=== PATIENT | male | born 1950 | race Caucasian/White ===

== ENCOUNTER 2016-11-07 08:20 | Day surgery (SDC) | payer OTHER ==
[~2016-11-07] VITALS: Ht 170.2 cm; Wt 91.5 kg
[2016-11-07] MEDS ORDERED: naproxen (09:34)
[2016-11-07] MEDS ORDERED: gabapentin (09:34)
[2016-11-07 09:38] VITALS: Ht 170.2 cm; Wt 91.5 kg
[2016-11-07 09:53] VITALS: BP 109/67; PULSE 53; RESP 20
[2016-11-07] MEDS ORDERED: FENTAnyl 50 MCG/ML VIAL ONE (10:17)
[2016-11-07] MEDS ORDERED: MIDAZOLAM 1 MG/ML 2 ML INJ ONE ×2 (10:17)
[2016-11-07 10:43] VITALS: BP 133/82; PULSE 60; RESP 21
--- NOTE | 2016-11-07 11:00 | GILP ---
DATE OF PROCEDURE: NAME OF PROCEDURES: Colonoscopy. SURGEON: Paul Bryan MD PREOPERATIVE DIAGNOSIS: Screening colonoscopy. POSTOPERATIVE DIAGNOSES 1. Colonoscopy all the way to the cecum. 2. Poor prep making the exam very suboptimal. 3. Diverticulosis of the colon. 4. Internal hemorrhoids. INDICATION FOR THE PROCEDURE: Mr. Rubio Dyer is a 66-year-old male patient who was scheduled for screening colonoscopy. The procedure and possible complications were well explained to the patient, he understood and conse nted to the procedure. DESCRIPTION OF PROCEDURE: Under the influence of fentanyl and Versed, the colonoscope was carefully introduced in the rectum and under direct vision, it was advanced all the way to the cecum. FINDINGS: The patient had poor prep making the exam very suboptimal. The patient was noted to have diverticulosis of the colon and internal hemorrhoids. No gross neoplasm was identified. He tolerated the procedure very well and there was no complication from the procedure. At the end o f the procedure, he was awake with stable vital signs and he was discharged home to the care of his family. IMPRESSION: 1. Colonoscopy all the way to the cecum. 2. Poor prep making the exam very suboptimal. 3. Diverticulosis of the colon. 4. Internal hemorrhoids. 5. No gross neoplasm was identified. PLAN: Because of the poor prep and suboptimal nature of the examination, the patient will need repe at colonoscopy with a better preparation within a year. Dictated By: PAUL KOROMA/AMY Conf#: [id number] DID#: [id number]
== END 2016-11-07 12:33 | disposition home or self-care (01) ==
LOC: GIL 08:20
PROVIDERS: ATTEND Internal Medicine Gastroenterology
DX: Z12.11 Encounter for screening for malignant neoplasm of colon (principal); K57.90 Diverticulosis of intestine, part unspecified, without perforation or abscess without bleeding; K64.8 Other hemorrhoids
CPT/HCPCS: 45378; J2250; J3010